=== PATIENT | male | born 1945 | race Caucasian/White ===

== ENCOUNTER 2018-11-19 10:18 | Outpatient (CLI) | payer MEDICARE, BC ==
[2018-11-19] MEDS ORDERED: ASPI81TA45 PO (10:51)
[2018-11-19] MEDS ORDERED: HYDR-3237 PO (11:11)
[2018-11-19 11:23] LABS: BASOPHILS # (AUTO) 0.04 x10^3/uL (0-0.1); BASOPHILS % (AUTO) 1 % (0-1); EOSINOPHILS # (AUTO) 0.08 x10^3/uL (0-0.4); EOSINOPHILS % (AUTO) 1 % (1-7); LYMPHOCYTES # (AUTO) 1.49 x10^3/uL (1-3.4); LYMPHOCYTES % (AUTO) 17 % (22-44); MD NO; MEAN CORPUSCULAR HEMOGLOBIN 30.7 pg (27.5-34.5); MEAN CORPUSCULAR HGB CONC 32.8 g/dL (33.2-36.2); MEAN CORPUSCULAR VOLUME 93.4 fL (81-97); MONOCYTES # (AUTO) 0.66 x10^3/uL (0.2-0.8); MONOCYTES % (AUTO) 8 % (2-9); NEUTROPHILS # (AUTO) 6.33 x10^3/uL (1.8-6.8); NEUTROPHILS % (AUTO) 74 % (42-75); PLATELET COUNT 219 x10^3/uL (130-400); RED BLOOD COUNT 5.14 x10^6/uL (4.38-5.82); RED CELL DISTRIBUTION WIDTH 14.3 % (9.4-14.8)
[2018-11-19 11:30] LABS: INTERNATIONAL NORMALIZED RATIO 1.04 (0.93-1.1); PROTHROMBIN TIME 10.9 Seconds (9.6-11.5)
[2018-11-19 11:33] LABS: ANION GAP 6 mmol/L (5-15); CHLORIDE 107 mmol/L (98-107)
[2018-11-19 11:37] LABS: HEMOGLOBIN A1C 5.7 % (4.2-6.3)
[2018-11-26] MEDS ORDERED: ROCURONIUM 10MG/ML,5ML ONE (08:29)
[2018-11-26] MEDS ORDERED: NEOSTIGMINE 1 MG/ML, 10ML ONE (08:29)
[2018-11-26] MEDS ORDERED: PROPOFOL 10 MG/ML, 20ML ONE (08:29)
[2018-11-26] MEDS ORDERED: GLYCOPYRROLATE 0.2MG/1ML, 5ML ONE (08:29)
[2018-11-26] MEDS ORDERED: CEFAZOLIN 1,000 MG ONE (08:29)
[2018-11-26] MEDS ORDERED: METOPROLOL 1 MG/ML, 5ML ONE (10:01)
== END 2018-11-19 23:59 | disposition home or self-care (01) ==
LOC: STAR 10:18
PROVIDERS: ATTEND Orthopaedic Surgery
DX: I48.91 Unspecified atrial fibrillation (principal); M17.12 Unilateral primary osteoarthritis, left knee; R79.89 Other specified abnormal findings of blood chemistry
CPT/HCPCS: 36415; 80048; 83036; 85025; 85610; 85730; 87081; 93005

== ENCOUNTER 2018-11-26 07:52 | Inpatient (IN) | payer MEDICARE, BC ==
[~2018-11-26] VITALS: Ht 180.3 cm; Wt 78.8 kg
[2018-11-26] MEDS: NS + 20MEQ KCL 1,000 ML IV SCH ×2 (06:29→17:46)
[~2018-11-26 07:52] MED LIST: ACETAMINOPHEN 650 MG/20.3 ML UDC PO PRN; ASPI81TA45 PO; BISACODYL 10 MG SUPP PR PRN; CEFAZOLIN PMX 2GM/50ML 50 ML IVPB SCH; DIPHENHYDRAMINE 50 MG CAPSULE PO PRN; EPINEPHRINE 1 MG/ML, 1ML ONE; HYDR-3237 PO; HYDROmorphone 1 MG/ML, 1ML INJ IV PRN; KETOROLAC 60 MG/2 ML ONE; ONDANSETRON 2MG/ML, 2ML IV PRN; ONDANSETRON ODT 4 MG PO PRN; OXYcodone IR 5MG TABLET PO PRN; SCOPOLAMINE PATCH, 1.5MG PATCH.TD72 TD ONE; SENNA/DOCUSATE TABLET PO PRN; SODIUM CHLORIDE 0.9% 50 ML ONE; TRANEXAMIC ACID 100 MG/ML, 10ML ONE; VANCOMYCIN 1,000 MG ONE; ZOLPIDEM 5MG TABLET PO PRN
[2018-11-26] MEDS ORDERED: NEOSTIGMINE 1 MG/ML, 10ML ONE ×2 (08:28→10:22)
[2018-11-26] MEDS ORDERED: FENTANYL PF 250 MCG/5ML ONE (08:28)
[2018-11-26] MEDS ORDERED: PROPOFOL 10 MG/ML, 20ML ONE ×2 (08:28→10:22)
[2018-11-26] MEDS ORDERED: CEFAZOLIN 1,000 MG ONE ×2 (08:28→10:22)
[2018-11-26] MEDS ORDERED: ROCURONIUM 10MG/ML,5ML ONE (08:28)
[2018-11-26] MEDS ORDERED: GLYCOPYRROLATE 0.2MG/1ML, 5ML ONE ×2 (08:28→10:22)
[2018-11-26] MEDS ORDERED: GABAPENTIN 300 MG CAPSULE PO ONE (08:30)
[2018-11-26] MEDS ORDERED: ACETAMINOPHEN 500 MG TABLET PO ONE (08:30)
[2018-11-26] MEDS: DOCUSATE 100 MG CAPSULE PO SCH ×2 (09:00→21:00)
[2018-11-26 09:06] VITALS: BP 147/106
[2018-11-26] MEDS ORDERED: LACTATED RINGERS 1,000 ML IV SCH (09:20)
[2018-11-26] MEDS ORDERED: PROMETHAZINE 25 MG/ML, 1ML IM PRN ×2 (10:00)
[2018-11-26] MEDS ORDERED: PROMETHAZINE 25 MG SUPP PR PRN (10:00)
[2018-11-26] MEDS ORDERED: LABETALOL 5MG/ML, 20ML IV PRN (10:00)
[2018-11-26] MEDS ORDERED: MEPERIDINE/PF 25MG/0.5ML IVPush PRN (10:00)
[2018-11-26] MEDS ORDERED: PROMETHAZINE 12.5 MG SUPP PR PRN (10:00)
[2018-11-26] MEDS ORDERED: hydrALAzine 20 MG/ML, 1ML IV PRN (10:00)
[2018-11-26] MEDS ORDERED: OXYcodone 5 MG/5 ML ORAL.SOL UDC PO PRN (10:00)
[2018-11-26] MEDS ORDERED: HYDROmorphone 2 MG/ML, 1ML IVPush PRN (10:00)
[2018-11-26] MEDS ORDERED: PROMETHAZINE 25 MG/ML, 1ML IV PRN (10:00)
[2018-11-26] MEDS ORDERED: FENTANYL PF 100 MCG/2ML IV PRN (10:00)
[2018-11-26] MEDS ORDERED: ONDANSETRON ODT 8 MG PO PRN (10:00)
[2018-11-26] MEDS ORDERED: MORPHINE SULFATE 4 MG/ML, 1ML IVPush PRN (10:00)
[2018-11-26] MEDS ORDERED: ONDANSETRON 2MG/ML, 2ML IV PRN (10:00)
[2018-11-26] MEDS ORDERED: ROCURONIUM 10 MG/ML,10ML ONE (10:22)
[2018-11-26] MEDS ORDERED: PHENYLEPHRINE 10 MG/ML ONE (10:22)
[2018-11-26] MEDS ORDERED: METOPROLOL 1 MG/ML, 5ML ONE (10:22)
[2018-11-26] MEDS ORDERED: OXYcodone 5 MG/5 ML ORAL.SOL UDC ONE (12:17)
[2018-11-26] MEDS ORDERED: ASPIRIN 325 MG TABLET ONE (12:56)
[2018-11-26 13:08] LABS: TROPONIN I < 0.015 ng/mL (0.000-0.045)
[2018-11-26] MEDS ORDERED: ASPIRIN 325 MG TABLET PO ONE (13:30)
[2018-11-26 15:35] LABS: TROPONIN I < 0.015 ng/mL (0.000-0.045)
[2018-11-26] MEDS: ASPIRIN 81 MG TABLET EC PO SCH (17:45)
[2018-11-26 18:10] LABS: TROPONIN I < 0.015 ng/mL (0.000-0.045)
[2018-11-26 19:20] VITALS: BP_SYST 87; BP_SYST 96; BP_DIAS 54; BP_DIAS 64
[2018-11-26] MEDS: CEFAZOLIN PMX 2GM/50ML 50 ML IVPB SCH (19:57)
[2018-11-27 01:39] VITALS: BP 103/70
[2018-11-27] MEDS: CEFAZOLIN PMX 2GM/50ML 50 ML IVPB SCH (03:00)
[2018-11-27] MEDS: ASPIRIN 81 MG TABLET EC PO SCH ×2 (05:00→17:36)
[2018-11-27] MEDS: HYDROcodone/APAP 5/325 TABLET PO PRN ×3 (05:00→21:27)
[2018-11-27] MEDS ORDERED: DEXAMETHASONE 4 MG/ML, 1ML IVPush SCH (06:00)
[2018-11-27] MEDS: NS + 20MEQ KCL 1,000 ML IV SCH (07:29)
[2018-11-27] MEDS: DOCUSATE 100 MG CAPSULE PO SCH ×2 (08:17→20:39)
[2018-11-27 08:23] VITALS: BP 128/95
[2018-11-27 09:10] LABS: TROPONIN I < 0.015 ng/mL (0.000-0.045)
[2018-11-27 10:50] VITALS: BP 121/78
[2018-11-27] MEDS ORDERED: SODIUM CHLORIDE 0.9%, 500ML IVBOLUS ONE (15:00)
[2018-11-27] MEDS ORDERED: METOPROLOL 1 MG/ML, 5ML IVPush STA (15:00)
[2018-11-27] MEDS: SODIUM CHLORIDE 0.9% 1,000 ML IV SCH ×2 (15:40→22:14)
[2018-11-27 17:17] LABS: MEAN CORPUSCULAR HEMOGLOBIN 30.9 pg (27.5-34.5); MEAN CORPUSCULAR HGB CONC 33.3 g/dL (33.2-36.2); MEAN PLATELET VOLUME 8.4 fL (7.4-10.4); PLATELET COUNT 207 x10^3/uL (130-400); RED BLOOD COUNT 4.86 x10^6/uL (4.38-5.82); RED CELL DISTRIBUTION WIDTH 14.4 % (9.4-14.8)
[2018-11-27 17:34] LABS: ALANINE AMINOTRANSFERASE 16 U/L (12-78); ALBUMIN 3.5 g/dL (3.4-5.0); ANION GAP 5 mmol/L (5-15); CALCIUM 8.8 mg/dL (8.5-10.1); CHLORIDE 106 mmol/L (98-107); CREATININE 1.21 mg/dL (0.7-1.3)
[2018-11-27] MEDS: METOPROLOL TARTRATE 25 MG TABLET PO SCH (17:36)
[2018-11-27 17:37] LABS: ALKALINE PHOSPHATASE 63 U/L (45-117); BILIRUBIN,TOTAL 0.8 mg/dL (0.2-1.0); TOTAL PROTEIN 6.7 g/dL (6.4-8.2)
[2018-11-27 17:39] VITALS: BP 114/78
[2018-11-27 17:47] LABS: BASOPHILS % (AUTO) 0 % (0-1); EOSINOPHILS # (AUTO) 0.01 x10^3/uL (0-0.4); EOSINOPHILS % (AUTO) 0 % (1-7); LYMPHOCYTES # (AUTO) 0.48 x10^3/uL (1-3.4); LYMPHOCYTES % (AUTO) 5 % (22-44); MD SCAN; MONOCYTES # (AUTO) 0.02 x10^3/uL (0.2-0.8); MONOCYTES % (AUTO) 0 % (2-9); NEUTROPHILS # (AUTO) 9.21 x10^3/uL (1.8-6.8); NEUTROPHILS % (AUTO) 95 % (42-75)
[2018-11-27 19:15] VITALS: BP 96/58
[2018-11-28 01:41] VITALS: BP 126/76
[2018-11-28] MEDS: METOPROLOL TARTRATE 25 MG TABLET PO SCH (06:03)
[2018-11-28] MEDS: HYDROcodone/APAP 5/325 TABLET PO PRN ×2 (06:04→10:11)
[2018-11-28] MEDS: ASPIRIN 81 MG TABLET EC PO SCH (06:04)
[2018-11-28] MEDS: MAGNESIUM HYDROXIDE 8%, 30ML UDC PO PRN ×2 (08:38→10:11)
[2018-11-28] MEDS: DOCUSATE 100 MG CAPSULE PO SCH (08:38)
[2018-11-28 08:39] VITALS: BP 138/83
[2018-11-28] MEDS ORDERED: METO25TA4 PO (11:00)
[2018-11-28] MEDS ORDERED: ASPI-515 PO (11:01)
[2018-11-28] MEDS ORDERED: ASPI81TA45 PO (11:02)
== END 2018-11-28 11:37 | disposition home or self-care (01) | DRG 470 ==
LOC: OUT 07:52 → 5SO 14:18 → OUT 14:31
PROVIDERS: ADMIT Orthopaedic Surgery; ATTEND Orthopaedic Surgery
PROC: 3E0T3BZ Introduction of Anesthetic Agent into Peripheral Nerves and Plexi, Percutaneous Approach (ICD-10-PCS; 2018-11-26)
PROC: 0SRD0J9 Replacement of Left Knee Joint with Synthetic Substitute, Cemented, Open Approach (ICD-10-PCS; principal; 2018-11-26 10:45)
DX: M17.12 Unilateral primary osteoarthritis, left knee (principal); E86.0 Dehydration; I25.10 Atherosclerotic heart disease of native coronary artery without angina pectoris; I48.2 Chronic atrial fibrillation; R00.0 Tachycardia, unspecified; Z79.01 Long term (current) use of anticoagulants; Z95.1 Presence of aortocoronary bypass graft
CPT/HCPCS: 36415; 80053; 84484; 85014; 85018; 85025; 93005; C1713; G0378; J0171; J0690; J1100; J1885; J2704; J2710; J3010; J3370; J3490; C1776; J2370; J7030; J7040; J7120